=== PATIENT | male | born 1930 | race Caucasian/White ===

== ENCOUNTER 2016-07-04 09:13 | Inpatient (IN) | payer OTHER, MEDICARE ==
--- NOTE | 2016-07-02 12:17 | GHP ---
[f rep st] HISTORY AND PHYSICAL DATE OF ADMISSION: 07/04/2016 Patient is an 86-year-old male, who comes to our office referred by Dr. Reyes for evaluation of right groin and left groin palpable masses and pain. The patient does suffer from chronic constipation, a lthough no genitourinary symptoms. ALLERGIES: Bactrim, statin medications. PAST MEDICAL HISTORY: Ischemic cardiomyopathy, coronary artery disease, hiatal hernia, hyperlipidemi a, Meniere's disease, peripheral neuropathy, sleep apnea, spinal stenosis. PAST SURGICAL HISTORY: Hernia repair, parathyroidectomy, prostate surgeries, sinus surgery. MEDICATIONS: Aspirin, Cymbalta, Aricept, methylphenidate, Synthroid, terazosin, testosterone. SOCIAL HISTORY: The patient is retired from [employer], former 2-pack per day smoker but qu it in 1975. Has 25 years. Two beers per week. REVIEW OF SYSTEMS: He had a negative 10-point review of systems. PHYSICAL EXAM: GENERAL: The patient is a pleasant elderly male, in no apparent distress. HEAD AND NECK: Normocephalic, atraumatic. CHEST: CTA bilaterally. HEART: Regular rhythm and rate. ABDOME N: Demonstrate a left inguinal reducible mass consistent with hernia. RECTAL: Exam negative. IMPRESSION: An 86-year-old male with left inguinal hernia. The recommendation of a laparoscopic lef t inguinal hernia repair was discussed with the patient in detail, including risks of recurrence, ble eding, hematoma, scrotal edema. The patient elected to proceed with scheduling for July 04, 2016. Possibility of open procedure was discussed with the patient as well given his history of right ing uinal hernia repair. /[id number]/MODL
[~2016-07-04 09:13] MED LIST: ceFAZolin 2 GM/DEXTROSE 100 ML IV ONE
[2016-07-04] MEDS ORDERED: LIDOCAINE 1% 5 ML SDV ID PRN (10:09)
[2016-07-04] MEDS ORDERED: LR 1,000 ML IV ONE (10:09)
[2016-07-04] MEDS ORDERED: LIDOCAINE 1% 5 ML SDV ONE (10:15)
[2016-07-04] MEDS ORDERED: CEFAZOLIN 2 GM/DEXTROSE/100 ML BAG IV ONE (10:15)
[2016-07-04] MEDS ORDERED: BUPIVACAINE 0.5% 30 ML SDV ONE (10:28)
[2016-07-04] MEDS ORDERED: PROPOFOL/EMULSION 500 MG/50 ML BOTTLE IV ONE (11:13)
[2016-07-04] MEDS ORDERED: fentaNYL 100 MCG/2 ML INJ ONE ×3 (11:13→13:17)
[2016-07-04] MEDS ORDERED: DEXAMETHASONE 4 MG/ML VIAL ONE (11:14)
[2016-07-04] MEDS ORDERED: GLYCOPYRROLATE 0.2 MG/1 ML VIAL ONE ×4 (11:14→11:22)
[2016-07-04] MEDS ORDERED: LIDOCAINE 2% 5 ML SDV ONE (11:14)
[2016-07-04] MEDS ORDERED: ONDANSETRON 4 MG/2 ML VIAL ONE (11:14)
[2016-07-04] MEDS ORDERED: ROCURONIUM 50 MG/5 ML VIAL ONE (11:14)
[2016-07-04] MEDS ORDERED: NEOSTIGMINE METHYLSULFATE 5 MG/5 ML SYR ONE (11:22)
[2016-07-04] MEDS ORDERED: MIDAZOLAM 2 MG/2 ML VIAL ONE (11:48)
[2016-07-04] MEDS ORDERED: ACETAMINOPHEN 325 MG TAB PO PRN (11:51)
[2016-07-04] MEDS ORDERED: ONDANSETRON 4 MG/2 ML VIAL IVP PRN (11:51)
[2016-07-04] MEDS ORDERED: DULoxetine 30 MG CAP PO SCH (12:00)
[2016-07-04] MEDS ORDERED: PROPOFOL 200 MG/20 ML VIAL ONE ×2 (13:18)
[2016-07-04] MEDS ORDERED: METOPROLOL TARTRATE 5 MG/5 ML INJ ONE (14:01)
--- NOTE | 2016-07-04 15:21 | POSTOPPROG ---
Post Op Note Date of Operation: 07/04/16 Surgeon: Burton Bright Quiller Tender: Maximo Whittington Anesthesiologist: Dr rubin Anesthesia: GET(General Endotracheal) Pre-op Diagnosis: Large left, possibly right inguinal hernias Post-op Diagnosis: same Indication: pain Procedure: B/L open inguinal hernia repair, attempt at laparoscopic Findings: B/L hernias Inf/Abcess present in the surg proc area at time of surgery?: No Depth: Organ Space EBL: 50-100
[2016-07-04] MEDS: D5W 1/2 NS W/ 20 KCl/L 1,000 ML IV SCH (16:04)
[2016-07-04] MEDS: HYDROCODONE/APAP 5/325 TAB PO PRN ×2 (17:43→22:20)
[2016-07-04] MEDS: DONEPEZIL HCL 5 MG TAB PO SCH (20:05)
[2016-07-04] MEDS: TERAZOSIN HCL 5 MG CAP PO SCH (20:05)
[2016-07-05] MEDS: D5W 1/2 NS W/ 20 KCl/L 1,000 ML IV SCH (04:11)
[2016-07-05] MEDS: HYDROCODONE/APAP 5/325 TAB PO PRN ×5 (04:11→22:54)
[2016-07-05 05:20] LABS: HEMATOCRIT 35.5 % (40.0-51.0); HEMOGLOBIN 12.5 g/dL (13.7-17.5)
[2016-07-05 05:26] LABS: ANION GAP 8 mEq/L (8-16); CALCIUM 7.8 mg/dL (8.5-10.4); CARBON DIOXIDE 23 mEq/l (22-31); CHLORIDE 105 mEq/L (97-110); CREATININE 1.7 mg/dL (0.7-1.3); GLOMERULAR FILTRATION RATE 38; GLUCOSE 166 mg/dL (70-100); POTASSIUM 5.2 mEq/L (3.5-5.2); SODIUM 136 mEq/L (134-144)
[2016-07-05] MEDS ORDERED: NS 1,000 ML IV ONE (09:00)
[2016-07-05] MEDS: ASPIRIN 81 MG CHEWABLE TAB PO SCH (09:06)
[2016-07-05] MEDS ORDERED: NS 1,000 ML IV SCH (11:30)
--- NOTE | 2016-07-05 11:32 | SOAPPROG ---
SOAP Progress Note Assessment/Plan: Assessment: POD # 1 s/p open BIH Hypotension - resolved with 1 L fluids Continue hospital management S: Was dizzy when standing O: Sitting in bed, comfortable Dressing dry Abdomen soft and non tender. No obvious ecchymosis Plan: 07/05/16 11:30 Objective: Vital Signs Temp Pulse Resp BP Pulse Ox 36.4 C 78 14 86/50 L 90 L 07/05/16 08:00 07/05/16 10:02 07/05/16 08:00 07/05/16 10:02 07/05/16 10:02 Laboratory Results 07/05/16 04:20 07/05/16 04:20 07/04/16 07/05/16 07/06/16 05:59 05:59 05:59 Intake Total 2870 Output Total 335 Balance 2535 ICD10 Worksheet Patient Problems: Problems Problem Status Diagnosed Bilateral inguinal hernia Acute - ICD10 Problem Qualifiers (1) Bilateral inguinal hernia
[2016-07-05] MEDS: DULoxetine 30 MG CAP PO SCH (12:03)
[2016-07-05] MEDS: HYDROmorphONE/DILAUDID 1 MG/ML SYR IVP PRN ×2 (14:36→23:10)
--- NOTE | 2016-07-05 16:44 | DX ---
Portable AP Upright Chest July 05, 2016 4:12 p.m. Clinical History: 86-year-old male postop day 1 from a lap converted to an open bilateral hernia repa ir, complaining of right shoulder pain. Comparison Study: None. Findings: Oxygen tubing is in place. There are moderate hypoventilatory features, which augment the c ardiac size and result in bibasilar areas of subsegmental atelectasis. There is peribronchial thicken ing. There is no pneumothorax or peripheral interstitial edema. The patient is slightly rotated to th e right. The osseous structures are age-appropriate. The glenohumeral joints are anatomically aligned on each side. Impression: Moderate hypoventilatory features.
[2016-07-05] MEDS: DONEPEZIL HCL 5 MG TAB PO SCH (20:14)
[2016-07-05] MEDS: TERAZOSIN HCL 5 MG CAP PO SCH (20:14)
[2016-07-06] MEDS: HYDROCODONE/APAP 5/325 TAB PO PRN ×2 (03:00→19:55)
[2016-07-06 05:07] LABS: % IMMATURE GRANULYOCYTES 0.4 % (0.0-1.1); ABSOLUTE IMMATURE GRANULOCYTES 0.03 10^3/uL (0.00-0.10); ADD DIFF? NO; ADD MORPH? NO; ADD SCAN? NO; ATYPICAL LYMPHOCYTE FLAG 0 (0-99); FRAGMENT RBC FLAG 0 (0-99); HEMATOCRIT 29.3 % (40.0-51.0); HEMOGLOBIN 10.4 g/dL (13.7-17.5); LEFT SHIFT FLG 10 (0-99); LIPEMIA HEMOLYSIS FLAG 90 (0-99); MEAN CELL HEMOGLOBIN CONCENTR. 35.5 g/dL (32.4-36.7); MEAN CELL VOLUME 101.4 fL (81.5-99.8); MEAN PLATELET VOLUME 9.8 fL (8.7-11.7); PLATELET CLUMPS FLAG 0 (0-99); PLATELET COUNT 147 10^3/uL (150-400); RED BLOOD CELL COUNT 2.89 10^6/uL (4.40-6.38); RED CELL DISTRIBUTION WIDTH 13.4 % (11.5-15.2)
[2016-07-06 05:28] LABS: ANION GAP 7 mEq/L (8-16); CALCIUM 7.6 mg/dL (8.5-10.4); CARBON DIOXIDE 21 mEq/l (22-31); CHLORIDE 107 mEq/L (97-110); CREATININE 1.8 mg/dL (0.7-1.3); GLOMERULAR FILTRATION RATE 36; GLUCOSE 119 mg/dL (70-100); POTASSIUM 4.5 mEq/L (3.5-5.2); SODIUM 135 mEq/L (134-144)
[2016-07-06] MEDS ORDERED: LACTULOSE 20 GM/30 ML UDCUP PO PRN (07:35)
[2016-07-06] MEDS ORDERED: BISACODYL 10 MG SUPP PR PRN (07:35)
[2016-07-06] MEDS ORDERED: MAGNESIUM HYDROXIDE 30 ML UDCUP PO PRN (07:35)
--- NOTE | 2016-07-06 07:35 | SOAPPROG ---
SOAP Progress Note Assessment/Plan: Assessment: POD # 2 s/p open BIH Hypotension - resolved with 1 L fluids Still with relative hypotension Acute anemia blood loss Continue hospital management S: feeling better today O: Sitting in bed, comfortable ecchymosis, some swelling. Abdomen soft and non tender. Plan: 07/05/16 11:30 07/06/16 07:33 Objective: Vital Signs Temp Pulse Resp BP Pulse Ox 36.2 C 85 20 93/55 L 90 L 07/06/16 07:12 07/06/16 07:12 07/06/16 07:12 07/06/16 07:12 07/06/16 07:12 Laboratory Results 07/06/16 04:22 07/06/16 04:22 07/05/16 07/06/16 07/07/16 05:59 05:59 05:59 Intake Total 2870 1520 Output Total 335 1000 Balance 4743 520 ICD10 Worksheet Patient Problems: Problems Problem Status Diagnosed Bilateral inguinal hernia Acute - ICD10 Problem Qualifiers (1) Bilateral inguinal hernia
[2016-07-06] MEDS: DULoxetine 30 MG CAP PO SCH (07:40)
[2016-07-06] MEDS: ASPIRIN 81 MG CHEWABLE TAB PO SCH (07:41)
[2016-07-06] MEDS: SENNOSIDES/DOCUSATE SODIUM TAB PO SCH ×2 (10:04→19:54)
[2016-07-06] MEDS: TERAZOSIN HCL 5 MG CAP PO SCH (19:54)
[2016-07-06] MEDS: DONEPEZIL HCL 5 MG TAB PO SCH (19:55)
[2016-07-06] MEDS: POLYETHYLENE GLYCOL 3350 17 GM PKT PO PRN (19:55)
[2016-07-07] MEDS: HYDROCODONE/APAP 5/325 TAB PO PRN ×2 (04:11→20:18)
[2016-07-07 05:17] LABS: HEMATOCRIT 27.7 % (40.0-51.0); HEMOGLOBIN 9.6 g/dL (13.7-17.5)
[2016-07-07] MEDS: DULoxetine 30 MG CAP PO SCH (08:48)
[2016-07-07] MEDS: SENNOSIDES/DOCUSATE SODIUM TAB PO SCH ×2 (08:48→20:18)
[2016-07-07] MEDS: ASPIRIN 81 MG CHEWABLE TAB PO SCH (08:48)
--- NOTE | 2016-07-07 09:03 | SOAPPROG ---
SOAP Progress Note Assessment/Plan: Assessment/Plan: 86 Y M s/p open BIH. Hypotension. Asymptomatic. Improved. Wounds. c/d/i. +swelling and ecchymosis. Ok to shower. May leave inc open to air. Dispo: Will d/w case management. Probable d/c to SNF once arranged. Patient lives byhimself . 07/07/16 09:00 Subjective: Eating. passing gas. no BM. pain controlled. agrees he'll need assistance before going home. Objective: Vital Signs Temp Pulse Resp BP Pulse Ox 36.7 C 85 14 113/65 92 07/07/16 07:43 07/07/16 07:43 07/07/16 07:43 07/07/16 07:43 07/07/16 07:43 Laboratory Results 07/07/16 04:31 07/06/16 04:22 07/06/16 07/07/16 07/08/16 05:59 05:59 05:59 Intake Total 1520 860 500 Output Total 1000 1450 500 Balance 520 -590 0 alert, nad no wob rrr abd soft, inc cdi, +edema and ecchymosis. ICD10 Worksheet Patient Problems: Problems Problem Status Diagnosed Bilateral inguinal hernia Acute
--- NOTE | 2016-07-07 09:56 | PDIAF ---
- Diagnosis Diagnosis: s/p B/L hernia surgery Code Status: Full Code - Medication Management Discharge Medications: Medications to Continue on Transfer Aspirin [Aspirin 81mg (*)] 81 mg PO DAILY 06/20/16 [Last Taken 06/20/16 05:30] Cholecalciferol Vit D3 [Vitamin D3 (*)] 5,000 units PO DAILY 06/20/16 [Last Taken 07/03/16] Cyanocobalamin [Vitamin B12 (*)] 1,000 mcg PO DAILY 06/20/16 [Last Taken ] DULoxetine [Cymbalta 30 MG (*)] 30 mg PO DAILY 06/20/16 [Last Taken 07/04/16 07: 00] Donepezil HCl [Aricept 5 MG (*)] 5 mg PO HS 06/20/16 [Last Taken 07/03/16] Levothyroxine [Synthroid 75 mcg (*)] 75 mcg PO DAILY06 06/20/16 [Last Taken 07:00] Methylphenidate HCl [Ritalin 20mg (*)] 20 mg PO DAILY 06/20/16 [Last Taken 07/04 07:00] Terazosin HCl [Hytrin 5 MG (*)] 5 mg PO HS 06/20/16 [Last Taken 07/01/16] Testosterone IM [Testosterone 100mg/ml IM inj (*)] 400 mg IM MO 06/20/16 [Last Taken 07/02/16] Discharge Medications: Refer to the Discharge Home Medication list for PRN reason. - Orders Services needed: Registered Nurse, Physical Therapy, Occupational Therapy Diet Recommendation: no restrictions on diet Diet Texture: Regular Texture Diet Wound Care Instructions: ok to shower over tapled incision Sutures/Pryor Site: woody should come out around Jul 16, can be done in Dr Ricardo odom or if still in rehab/SNF
[2016-07-07] MEDS: POLYETHYLENE GLYCOL 3350 17 GM PKT PO PRN (16:14)
[2016-07-07] MEDS ORDERED: ALBUTEROL 3 ML DEYVIAL IH PRN (20:08)
[2016-07-07] MEDS: TERAZOSIN HCL 5 MG CAP PO SCH (20:18)
[2016-07-07] MEDS: DONEPEZIL HCL 5 MG TAB PO SCH (20:18)
[2016-07-08] MEDS: HYDROCODONE/APAP 5/325 TAB PO PRN ×3 (04:25→16:42)
[2016-07-08] MEDS: ASPIRIN 81 MG CHEWABLE TAB PO SCH (07:18)
[2016-07-08] MEDS: DULoxetine 30 MG CAP PO SCH (07:18)
[2016-07-08] MEDS: SENNOSIDES/DOCUSATE SODIUM TAB PO SCH (07:18)
[2016-07-08 07:33] VITALS: RESP 16
--- NOTE | 2016-07-08 10:51 | PDIAF ---
- Diagnosis Diagnosis: s/p B/L hernia surgery Code Status: Full Code - Medication Management Discharge Medications: Medications to Continue on Transfer Aspirin [Aspirin 81mg (*)] 81 mg PO DAILY 06/20/16 [Last Taken 06/20/16 05:30] Cholecalciferol Vit D3 [Vitamin D3 (*)] 5,000 units PO DAILY 06/20/16 [Last Taken 07/03/16] Cyanocobalamin [Vitamin B12 (*)] 1,000 mcg PO DAILY 06/20/16 [Last Taken ] DULoxetine [Cymbalta 30 MG (*)] 30 mg PO DAILY 06/20/16 [Last Taken 07/04/16 07: 00] Donepezil HCl [Aricept 5 MG (*)] 5 mg PO HS 06/20/16 [Last Taken 07/03/16] Levothyroxine [Synthroid 75 mcg (*)] 75 mcg PO DAILY06 06/20/16 [Last Taken 07:00] Methylphenidate HCl [Ritalin 20mg (*)] 20 mg PO DAILY 06/20/16 [Last Taken 07/04 07:00] Terazosin HCl [Hytrin 5 MG (*)] 5 mg PO HS 06/20/16 [Last Taken 07/01/16] Testosterone IM [Testosterone 100mg/ml IM inj (*)] 400 mg IM MO 06/20/16 [Last Taken 07/02/16] Acetaminophen [Tylenol 325mg (*)] 325 - 650 mg PO Q4HRS PRN #0 tab 07/07/16 [ Last Taken Unknown] Hydrocodone/APAP 5/325 [[place] 5/325 (*)] 1 - 2 tab PO Q4HRS PRN #0 tab 07/07/16 [Last Taken Unknown] Discharge Medications: Refer to the Discharge Home Medication list for PRN reason. - Orders Services needed: Registered Nurse, Physical Therapy, Occupational Therapy Diet Recommendation: no restrictions on diet Diet Texture: Regular Texture Diet Wound Care Instructions: ok to shower over tapled incision Sutures/Woody Site: woody should come out around Jul 16, can be done in Dr Ricardo odom or if still in rehab/SNF - Follow Up Care Current Providers and Referrals: GALA NAVAS [Primary Care Provider] -
[2016-07-08] MEDS: POLYETHYLENE GLYCOL 3350 17 GM PKT PO PRN (11:40)
[2016-07-08 15:38] VITALS: BP 138/68; PULSE 77; TEMP 97.5; O2SAT 96
== END 2016-07-08 17:09 | DRG 351 ==
LOC: FSGY 09:13 → F3E 11:51 → OBSVTOIN 07-05 11:30
PROVIDERS: ADMIT Surgery; ATTEND Surgery
PROC: 0YUA0JZ Supplement Bilateral Inguinal Region with Synthetic Substitute, Open Approach (ICD-10-PCS; principal; 2016-07-04 11:00)
DX: K40.20 Bilateral inguinal hernia, without obstruction or gangrene, not specified as recurrent (principal); D62 Acute posthemorrhagic anemia; I95.81 Postprocedural hypotension; K59.00 Constipation, unspecified; I25.10 Atherosclerotic heart disease of native coronary artery without angina pectoris; E78.5 Hyperlipidemia, unspecified; E03.9 Hypothyroidism, unspecified; G62.9 Polyneuropathy, unspecified
CPT/HCPCS: 97116-GP; 97162-GP; C1781; G8978-GP-CI; G8978-GP-CJ; G8979-GP-CI; G8980-GP-CJ; J0690; J1100; J1170; J2250; J2405; J2704; J2710; J3010

== ENCOUNTER → 2018-03-18 | Outpatient (CLI) | payer OTHER, MEDICARE | LOC: BHLMT 11:30 | PROVIDERS: ATTEND Nurse Practitioner Family | DX: R07.9 Chest pain, unspecified (principal); I25.5 Ischemic cardiomyopathy; I25.10 Atherosclerotic heart disease of native coronary artery without angina pectoris; E78.00 Pure hypercholesterolemia, unspecified; I49.3 Ventricular premature depolarization | CPT/HCPCS: 93005-PO ==

== ENCOUNTER → 2018-03-25 | Outpatient (CLI) | payer OTHER, MEDICARE | LOC: BHLMT 14:00 | PROVIDERS: ATTEND Internal Medicine Cardiovascular Disease | DX: R07.9 Chest pain, unspecified (principal); I42.9 Cardiomyopathy, unspecified; I25.10 Atherosclerotic heart disease of native coronary artery without angina pectoris; I49.3 Ventricular premature depolarization | CPT/HCPCS: 78452; 93017; A9500; J2785 ==